=== PATIENT | male | born 1955 | race Caucasian/White ===

== ENCOUNTER 2024-03-09 17:00 | Inpatient (IN) | payer MEDICAID, OTHER ==
[~2024-03-09] VITALS: Ht 175.3 cm; Wt 67.1 kg
[2024-03-09 17:29] LABS: BASOPHILS % 0.5 % (0.0-2.0); EOSINOPHILS % 4.6 % (0.0-5.0); HEMATOCRIT. 38.6 % (42.0-52.0); HEMOGLOBIN. 12.9 g/dL (14.0-18.0); LYMPHOCYTES % 7.9 % (20.0-50.0); MEAN CORPUSCULAR HEMOGLOBIN 30.1 pg (28.0-32.0); MEAN CORPUSCULAR HGB CONC 33.4 g/dL (31.0-37.0); MEAN PLATELET VOLUME 8.8 fl (7.4-10.4); MONOCYTES % 5.4 % (2.0-8.0); NEUTROPHILS % 81.6 % (40.0-76.0); PLATELET 347 x1000/uL (130-400); RED BLOOD CELL COUNT 4.29 mill/uL (4.7-6.1); RED CELL DISTRIBUTION WIDTH 15.7 % (11.6-14.6)
[2024-03-09 17:31] LABS: CHLORIDE 104 mEq/L (98-107); SODIUM 138 mEq/L (136-145)
[2024-03-09 17:32] LABS: CARBON DIOXIDE 23 mEq/L (21-32)
[2024-03-09] MEDS: SODIUM CHLORIDE 0.9% (SEPSIS BOLUS) IV ONE (17:34)
[2024-03-09 17:37] LABS: CREATININE 0.9 mg/dL (0.6-1.3); GLUCOSE 333 mg/dL (70-105); UREA NITROGEN BLOOD 16 mg/dL (9-23)
[2024-03-09 17:39] LABS: ALANINE AMINOTRANSFERASE 8 IU/L (10-49); ALBUMIN 4.4 g/dL (3.2-4.8); ASPARTATE AMINOTRANSFERASE 15 IU/L (<34); BILIRUBIN DIRECT 0.2 mg/dL (<=3.0); BILIRUBIN TOTAL 0.5 mg/dL (0.1-1.0); PROTEIN TOTAL 7.5 g/dL (6.0-8.3)
[2024-03-09 17:43] LABS: INR 1.1; PROTHROMBIN TIME 12.5 sec (9.6-11.0)
[2024-03-09 17:45] LABS: TROPONIN I HIGH SENSITIVITY 529 ng/L (3.0-53)
[2024-03-09] MEDS ORDERED: VANCOMYCIN 1G PREMIX 200 ML IV ONE (17:45)
[2024-03-09] MEDS: PIPERACILLIN/TAZO 3.375G/50ML 50 ML IV ONE (17:57)
[2024-03-09] MEDS: VANCOMYCIN 1GM PMX (XELLIA) 200 ML IV NR (18:22)
[2024-03-09] MEDS: NOREPINEPHRINE 8MG/250ML PMX 250 ML IV ONE (18:31)
[2024-03-09] MEDS: SUCCINYLCHOLINE CHLORIDE 200MG/10ML IV ONE (18:40)
[2024-03-09] MEDS: ETOMIDATE 2MG/ML 10ML VIAL IV ONE (18:40)
[2024-03-09 19:20] LABS: BG BASE EXCESS -3.6 mmol/L (-2.0-3.0); BG CARBOXYHEMOGLOBIN 1.1 % (0.5-1.5); BG DEOXYHEMOGLOBIN 3.6 % (0.0-5.0); BG FRACTION INSPIRED OXYGEN 100; BG HCO3 ACT 21.3 mmol/L (21.0-28.0); BG METHEMOGLOBIN 0.2 % (0.5-1.5); BG OXYGEN SATURATION 96.4 % (94.0-98.0); BG OXYHEMOGLOBIN 95.1 % (94.0-98.0); BG PH 7.366 (7.350-7.450); BG SAMPLE SITE RIGHT BRACHIAL; BG TOTAL HEMOGLOBIN 13.8 g/dL (13.5-17.5); BG VENT MODE MASK - NRB
[2024-03-09 19:46] LABS: CLARITY URINE CLOUDY (CLEAR); COLOR URINE YELLOW (YELLOW); GLUCOSE URINE 2+ (NEGATIVE); KETONES URINE TRACE (NEGATIVE); LEUKOCYTE ESTERASE URINE 1+ (NEGATIVE); NITRITE URINE NEGATIVE (NEGATIVE); OCCULT BLOOD URINE TRACE (NEGATIVE); PH URINE 5.5 (4.5-8.0); PROTEIN URINE 1+ (NEGATIVE); SPECIFIC GRAVITY URINE 1.014 (1.005-1.030); UROBILINOGEN URINE 0.2 E.U./dL (0.2-1.0)
[2024-03-09 20:01] LABS: RBC URINE 0-2 /hpf (0-2)
[2024-03-09 20:02] LABS: BACTERIA URINE 2+; SQUAMOUS EPITHELIAL CELL URINE FEW /lpf (RARE/1+)
[2024-03-09 21:02] LABS: TROPONIN I HIGH SENSITIVITY 4751 ng/L (3.0-53)
[2024-03-09] MEDS: ACETAMINOPHEN 325MG TABLET PO ONE (21:16)
[2024-03-09] MEDS ORDERED: MAGNESIUM/ALUMINUM HYDROXIDE/SIMETHICONE 30ML UDC PO PRN (21:30)
[2024-03-09] MEDS ORDERED: VANCOMYCIN 1G PREMIX 200 ML IV SCH (21:30)
[2024-03-09] MEDS ORDERED: CLONIDINE 0.1MG TABLET PO PRN (21:30)
[2024-03-09] MEDS: ONDANSETRON HCL 4MG/2ML INJ IV PRN (21:55)
[2024-03-09] MEDS ORDERED: PIPERACILLIN/TAZO 3.375G/50ML 50 ML IV SCH (22:00)
[2024-03-09] MEDS: IPRATROPIUM/ALBUTEROL 0.5-3(2.5)MG/3ML NEB HHN PRN (22:10)
[2024-03-09 22:11] VITALS: PULSE 88; RESP 22; O2SAT 93
[2024-03-09] MEDS: DEXT 5%/0.45% NACL 1000ML 1,000 ML IV SCH (23:16)
[2024-03-09 23:20] VITALS: PULSE 80; RESP 39; O2SAT 91
[2024-03-09] MEDS ORDERED: MIDAZOLAM 100MG/100ML PMX 100 ML IV PRN (23:45)
[2024-03-10] VITALS (71 sets, daily range): BP systolic 54–144; BP diastolic 40–86; PULSE 91–132; RESP 12–42; TEMP 36.6696–39.4476; O2SAT 94–100
[2024-03-10] MEDS: MIDAZOLAM 100MG/100ML PMX 100 ML IV PRN ×2 (00:07→13:18)
[2024-03-10 00:20] LABS: BG BASE EXCESS -5.7 mmol/L (-2.0-3.0); BG CARBOXYHEMOGLOBIN 0.7 % (0.5-1.5); BG DEOXYHEMOGLOBIN 1.6 % (0.0-5.0); BG FRACTION INSPIRED OXYGEN 100; BG HCO3 ACT 18.2 mmol/L (21.0-28.0); BG METHEMOGLOBIN 0.2 % (0.5-1.5); BG OXYGEN SATURATION 98.4 % (94.0-98.0); BG OXYHEMOGLOBIN 97.5 % (94.0-98.0); BG PCO2 31.2 mmHg (35.0-48.0); BG PH 7.383 (7.350-7.450); BG PO2 113.8 mmHg (83.0-108.0); BG SAMPLE SITE RIGHT BRACHIAL; BG TOTAL HEMOGLOBIN 14.4 g/dL (13.5-17.5); BG VENT MODE VENT - AC
[2024-03-10] MEDS: VANCOMYCIN 1GM PMX (XELLIA) 200 ML IV SCH (06:23)
[2024-03-10 06:29] LABS: BASOPHILS % 0.6 % (0.0-2.0); HEMATOCRIT. 40.9 % (42.0-52.0); LYMPHOCYTES % 12.7 % (20.0-50.0); MEAN CORPUSCULAR HEMOGLOBIN 28.8 pg (28.0-32.0); MEAN CORPUSCULAR HGB CONC 31.9 g/dL (31.0-37.0); MEAN CORPUSCULAR VOLUME 90.4 fL (80.0-94.0); MEAN PLATELET VOLUME 9.1 fl (7.4-10.4); MONOCYTES % 7.3 % (2.0-8.0); NEUTROPHILS % 79.4 % (40.0-76.0); PLATELET 274 x1000/uL (130-400); RED BLOOD CELL COUNT 4.53 mill/uL (4.7-6.1); RED CELL DISTRIBUTION WIDTH 15.6 % (11.6-14.6); WHITE BLOOD COUNT 13.2 x1000/uL (4.5-11.0)
[2024-03-10 06:40] LABS: CALCIUM 9.3 mg/dL (8.7-10.4); CARBON DIOXIDE 23 mEq/L (21-32); CHLORIDE 107 mEq/L (98-107); POTASSIUM 2.9 mEq/L (3.5-5.1); SODIUM 140 mEq/L (136-145)
[2024-03-10 06:45] LABS: CREATININE 1.2 mg/dL (0.6-1.3); GLUCOSE 390 mg/dL (70-105)
[2024-03-10 06:46] LABS: LDL CHOLESTEROL 34 mg/dL (5-100); TRIGLYCERIDE 141 mg/dL (0-150); UREA NITROGEN BLOOD 19 mg/dL (9-23)
[2024-03-10 06:47] LABS: ALANINE AMINOTRANSFERASE 13 IU/L (10-49); ASPARTATE AMINOTRANSFERASE 53 IU/L (<34); BILIRUBIN DIRECT 0.3 mg/dL (<=3.0); CHOLESTEROL 92 mg/dL (<200); HDL CHOLESTEROL 32 mg/dL (>55)
[2024-03-10 06:48] LABS: BILIRUBIN TOTAL 0.7 mg/dL (0.1-1.0); PHOSPHORUS 1.6 mg/dL (2.5-4.9); PROTEIN TOTAL 7.1 g/dL (6.0-8.3)
[2024-03-10 06:50] LABS: T4 FREE 1.21 ng/dL (0.89-1.76); THYROID STIMULATING HORMONE 2.08 uIU/mL (0.55-4.78)
[2024-03-10] MEDS ORDERED: DEXTROSE 50% WATER 50ML SYRINGE IV PRN (09:15)
[2024-03-10] MEDS: PIPERACILLIN/TAZO 3.375G/50ML 50 ML IV SCH (09:47)
[2024-03-10 09:48] LABS: BG CARBOXYHEMOGLOBIN 0.8 % (0.5-1.5); BG DEOXYHEMOGLOBIN 0.5 % (0.0-5.0); BG FRACTION INSPIRED OXYGEN 80; BG HCO3 ACT 20.3 mmol/L (21.0-28.0); BG METHEMOGLOBIN 0.2 % (0.5-1.5); BG OXYGEN SATURATION 99.5 % (94.0-98.0); BG OXYHEMOGLOBIN 98.5 % (94.0-98.0); BG PCO2 38.8 mmHg (35.0-48.0); BG PH 7.337 (7.350-7.450); BG PO2 182.9 mmHg (83.0-108.0); BG SAMPLE SITE RIGHT RADIAL; BG TOTAL HEMOGLOBIN 13.5 g/dL (13.5-17.5); BG VENT MODE VENT - AC
[2024-03-10] MEDS: PANTOPRAZOLE SODIUM 40 MG/VIAL IV SCH (09:48)
[2024-03-10] MEDS: ENOXAPARIN 40MG/0.4ML SYR SUBCUT SCH (09:49)
[2024-03-10 09:53] LABS: CREATINE KINASE 479 IU/L (46-171)
[2024-03-10 09:56] LABS: VITAMIN B12 SERUM 365 pg/mL (211-911)
[2024-03-10 09:57] LABS: FOLIC ACID (FOLATE) SERUM 13.34 ng/mL (>5.38)
[2024-03-10 11:09] LABS: AMMONIA < 17 uMol/L (<32)
[2024-03-10] MEDS: MAGNESIUM 2 G PREMIX 50 ML IV SCH (11:31)
[2024-03-10] MEDS ORDERED: NOREPINEPHRINE 8MG/250ML PMX 250 ML IV PRN (12:00)
[2024-03-10] MEDS: BLOOD SUGAR DIAGNOSTIC STRIP TEST SCH (12:10)
[2024-03-10] MEDS ORDERED: MIDAZOLAM HCL 100 MG in SODIUM CHLORIDE 0.9% 80 ML IV PRN (12:15)
[2024-03-10] MEDS: SODIUM CHLORIDE 0.9% 1,000 ML IV SCH (12:37)
[2024-03-10] MEDS: LACTATED RINGERS 1,000 ML IV ONE (12:37)
[2024-03-10] MEDS: NOREPINEPHRINE 8MG/250ML PMX 250 ML IV PRN (12:38)
[2024-03-10] MEDS: INSULIN LISPRO 100 UNITS/ML SUBCUT SCH (12:39)
[2024-03-10] MEDS ORDERED: LACTATED RINGERS 1,000 ML IV SCH (13:15)
[2024-03-10] MEDS: POTASSIUM PHOSPHATE 30 MMOL in SODIUM CHLORIDE 0.9% 490 ML IV SCH (14:10)
[2024-03-10] MEDS: MAGNESIUM 4 G PREMIX 100 ML IV SCH (14:10)
[2024-03-10] MEDS: IPRATROPIUM/ALBUTEROL 0.5-3(2.5)MG/3ML NEB HHN SCH (14:14)
[2024-03-10 14:25] LABS: *AMPHETAMINES SCREEN URINE NEGATIVE (NEGATIVE); *BENZODIAZEPINES SCREEN URINE PRESUMPTIVE POSITIVE (NEGATIVE)
[2024-03-10 14:26] LABS: *BARBITURATES SCREEN URINE NEGATIVE (NEGATIVE); *COCAINE SCREEN URINE NEGATIVE (NEGATIVE); CANNABINOID URINE SCREEN NEGATIVE (NEGATIVE); ECSTASY MDMA SCREEN URINE NEGATIVE (NEGATIVE); METHADONE URINE SCREEN NEGATIVE (NEGATIVE); OPIATES URINE SCREEN NEGATIVE (NEGATIVE); PHENCYCLIDINE URINE SCREEN NEGATIVE (NEGATIVE)
[2024-03-10 15:16] LABS: PHOSPHORUS 2.5 mg/dL (2.5-4.9)
[2024-03-10] MEDS: VANCOMYCIN 750MG PMX (XELLIA) 150 ML IV SCH (17:00)
[2024-03-10] MEDS: ACETAMINOPHEN 325MG TABLET PO PRN (18:50)
[2024-03-10] MEDS: NOREPINEPHRINE 32 MG in SODIUM CHLORIDE 0.9% 218 ML IV PRN (22:56)
[2024-03-11] VITALS (115 sets, daily range): BP systolic 47–172; BP diastolic 32–98; PULSE 87–127; RESP 9–44; TEMP 36.83628–39.1698; O2SAT 90–100
[2024-03-11] MEDS: BLOOD SUGAR DIAGNOSTIC STRIP TEST SCH (05:26)
[2024-03-11] MEDS: INSULIN LISPRO 100 UNITS/ML SUBCUT SCH (05:28)
[2024-03-11 06:24] LABS: BASOPHILS % 0.6 % (0.0-2.0); EOSINOPHILS % 0.2 % (0.0-5.0); HEMATOCRIT. 39.6 % (42.0-52.0); HEMOGLOBIN. 12.6 g/dL (14.0-18.0); MEAN CORPUSCULAR HEMOGLOBIN 29.1 pg (28.0-32.0); MEAN CORPUSCULAR HGB CONC 31.9 g/dL (31.0-37.0); MEAN PLATELET VOLUME 9.5 fl (7.4-10.4); MONOCYTES % 6.7 % (2.0-8.0); NEUTROPHILS % 82.5 % (40.0-76.0); PLATELET 229 x1000/uL (130-400); RED BLOOD CELL COUNT 4.35 mill/uL (4.7-6.1); RED CELL DISTRIBUTION WIDTH 16.1 % (11.6-14.6); WHITE BLOOD COUNT 18.3 x1000/uL (4.5-11.0)
[2024-03-11] MEDS ORDERED: DEXT 5%/0.9% NACL 1,000 ML IV SCH (09:30)
[2024-03-11 10:04] LABS: CHLORIDE 110 mEq/L (98-107); POTASSIUM 3.5 mEq/L (3.5-5.1); SODIUM 143 mEq/L (136-145)
[2024-03-11 10:05] LABS: CALCIUM 8.9 mg/dL (8.7-10.4); CARBON DIOXIDE 21 mEq/L (21-32)
[2024-03-11 10:10] LABS: CREATININE 0.8 mg/dL (0.6-1.3); GLUCOSE 277 mg/dL (70-105); UREA NITROGEN BLOOD 12 mg/dL (9-23)
[2024-03-11 10:12] LABS: ALANINE AMINOTRANSFERASE 18 IU/L (10-49); ALBUMIN 3.6 g/dL (3.2-4.8); ASPARTATE AMINOTRANSFERASE 47 IU/L (<34); BILIRUBIN DIRECT 0.3 mg/dL (<=3.0); PHOSPHORUS 2.7 mg/dL (2.5-4.9)
[2024-03-11 10:13] LABS: BILIRUBIN TOTAL 0.7 mg/dL (0.1-1.0); PROTEIN TOTAL 6.8 g/dL (6.0-8.3)
[2024-03-11] MEDS: MEROPENEM 1G/100ML 100 ML IV SCH (10:42)
[2024-03-11 11:19] LABS: TROPONIN I HIGH SENSITIVITY 6438 ng/L (3.0-53)
[2024-03-11 13:06] LABS: BG BASE EXCESS -2.4 mmol/L (-2.0-3.0); BG CARBOXYHEMOGLOBIN 0.4 % (0.5-1.5); BG DEOXYHEMOGLOBIN 2.1 % (0.0-5.0); BG FRACTION INSPIRED OXYGEN 35; BG HCO3 ACT 21.5 mmol/L (21.0-28.0); BG METHEMOGLOBIN 0.3 % (0.5-1.5); BG OXYGEN SATURATION 97.9 % (94.0-98.0); BG OXYHEMOGLOBIN 97.2 % (94.0-98.0); BG PCO2 34.1 mmHg (35.0-48.0); BG PH 7.417 (7.350-7.450); BG PO2 95.8 mmHg (83.0-108.0); BG SAMPLE SITE RIGHT RADIAL; BG TOTAL HEMOGLOBIN 12.8 g/dL (13.5-17.5); BG VENT MODE VENT - AC
[2024-03-11] MEDS: SODIUM CHLORIDE 0.9% 1,000 ML IV SCH (17:21)
[2024-03-12] VITALS (109 sets, daily range): BP systolic 70–157; BP diastolic 49–140; PULSE 81–132; RESP 0–39; TEMP 37.55856–38.50308; O2SAT 94–100
[2024-03-12] MEDS: FENTANYL 2500MCG/250ML PMX 250 ML IV PRN (06:07)
[2024-03-12 06:15] LABS: CARBON DIOXIDE 27 mEq/L (21-32); CHLORIDE 110 mEq/L (98-107); POTASSIUM 3.7 mEq/L (3.5-5.1); SODIUM 144 mEq/L (136-145)
[2024-03-12 06:16] LABS: CALCIUM 9.1 mg/dL (8.7-10.4)
[2024-03-12 06:21] LABS: CREATININE 0.7 mg/dL (0.6-1.3); GLUCOSE 282 mg/dL (70-105); UREA NITROGEN BLOOD 13 mg/dL (9-23)
[2024-03-12 06:45] LABS: BASOPHILS % 1.1 % (0.0-2.0); EOSINOPHILS % 2.2 % (0.0-5.0); HEMOGLOBIN. 12.8 g/dL (14.0-18.0); LYMPHOCYTES % 20.7 % (20.0-50.0); MEAN CORPUSCULAR HEMOGLOBIN 29.2 pg (28.0-32.0); MEAN CORPUSCULAR VOLUME 91.4 fL (80.0-94.0); MEAN PLATELET VOLUME 9.5 fl (7.4-10.4); MONOCYTES % 2.5 % (2.0-8.0); NEUTROPHILS % 73.5 % (40.0-76.0); PLATELET 199 x1000/uL (130-400); RED BLOOD CELL COUNT 4.38 mill/uL (4.7-6.1); RED CELL DISTRIBUTION WIDTH 16.2 % (11.6-14.6); WHITE BLOOD COUNT 8.3 x1000/uL (4.5-11.0)
[2024-03-12 10:20] LABS: BG BASE EXCESS 1.6 mmol/L (-2.0-3.0); BG CARBOXYHEMOGLOBIN 0.4 % (0.5-1.5); BG DEOXYHEMOGLOBIN 2.6 % (0.0-5.0); BG FRACTION INSPIRED OXYGEN 35; BG HCO3 ACT 26.3 mmol/L (21.0-28.0); BG METHEMOGLOBIN 0.3 % (0.5-1.5); BG OXYGEN SATURATION 97.4 % (94.0-98.0); BG OXYHEMOGLOBIN 96.7 % (94.0-98.0); BG PCO2 41.9 mmHg (35.0-48.0); BG PH 7.416 (7.350-7.450); BG PO2 89.3 mmHg (83.0-108.0); BG SAMPLE SITE RIGHT RADIAL; BG TOTAL HEMOGLOBIN 12.5 g/dL (13.5-17.5); BG VENT MODE VENT - AC
[2024-03-12] MEDS: QUETIAPINE FUMARATE 25MG TABLET PO SCH (12:19)
[2024-03-13] VITALS (100 sets, daily range): BP systolic 65–156; BP diastolic 47–92; PULSE 81–113; RESP 11–42; TEMP 37.05852–38.3364; O2SAT 36–100
[2024-03-13 05:36] LABS: DIFFERENTIAL COMMENT 0; HEMATOCRIT. 33.4 % (42.0-52.0); HEMOGLOBIN. 11.4 g/dL (14.0-18.0); LYMPHOCYTES % 13.3 % (20.0-50.0); MEAN CORPUSCULAR HEMOGLOBIN 30.8 pg (28.0-32.0); MEAN CORPUSCULAR HGB CONC 34.1 g/dL (31.0-37.0); MEAN CORPUSCULAR VOLUME 90.1 fL (80.0-94.0); MEAN PLATELET VOLUME 9.7 fl (7.4-10.4); MONOCYTES % 6.5 % (2.0-8.0); NEUTROPHILS % 74.2 % (40.0-76.0); PLATELET 180 x1000/uL (130-400); RED BLOOD CELL COUNT 3.71 mill/uL (4.7-6.1); RED CELL DISTRIBUTION WIDTH 16.3 % (11.6-14.6); WHITE BLOOD COUNT 9.2 x1000/uL (4.5-11.0)
[2024-03-13 05:37] LABS: CARBON DIOXIDE 31 mEq/L (21-32); CHLORIDE 110 mEq/L (98-107); POTASSIUM 3.1 mEq/L (3.5-5.1); SODIUM 145 mEq/L (136-145)
[2024-03-13 05:39] LABS: CALCIUM 8.3 mg/dL (8.7-10.4)
[2024-03-13 05:43] LABS: CREATININE 0.6 mg/dL (0.6-1.3); GLUCOSE 230 mg/dL (70-105)
[2024-03-13 05:44] LABS: UREA NITROGEN BLOOD 12 mg/dL (9-23)
[2024-03-13] MEDS: KCL 20MEQ/100ML X 2 FOR TOTAL KCL 40MEQ/200ML IV SCH (12:08)
[2024-03-13] MEDS ORDERED: POTASSIUM CHLORIDE 40 MEQ in DEXT 5% WATER 230 ML IV NR (12:30)
[2024-03-13] MEDS: MIDAZOLAM HCL 2 MG/2 ML VIAL IV NR (14:56)
[2024-03-13 15:32] LABS: BG DEOXYHEMOGLOBIN 10.4 % (0.0-5.0); BG METHEMOGLOBIN 0.1 % (0.5-1.5); BG OXYGEN SATURATION 89.5 % (94.0-98.0); BG OXYHEMOGLOBIN 88.5 % (94.0-98.0); BG PCO2 45.7 mmHg (35.0-48.0); BG PH 7.435 (7.350-7.450); BG PO2 54.7 mmHg (83.0-108.0); BG SAMPLE SITE RIGHT RADIAL; BG VENT MODE VENT - SIMV
[2024-03-13] MEDS: DOCUSATE SODIUM SUGAR FREE 100MG/10ML UDC NG SCH (17:25)
[2024-03-14] VITALS (116 sets, daily range): BP systolic 54–142; BP diastolic 44–102; PULSE 85–122; RESP 14–40; TEMP 36.83628–37.66968; O2SAT 96–100
[2024-03-14] MEDS: ACETYLCYSTEINE 200MG/ML 20% VIAL 4ML INH SCH (01:37)
[2024-03-14] MEDS: FENTANYL CITRATE 2,500 MCG in SODIUM CHLORIDE 0.9% 200 ML IV PRN (07:04)
[2024-03-14 07:05] LABS: HEMATOCRIT 34.9 % (42.0-52.0); HEMOGLOBIN 11.4 g/dL (14.0-18.0); MEAN CORPUSCULAR HEMOGLOBIN 29.5 pg (28.0-32.0); MEAN CORPUSCULAR HGB CONC 32.6 g/dL (31.0-37.0); MEAN CORPUSCULAR VOLUME 90.4 fL (80.0-94.0); PLATELET 175 x1000/uL (130-400); RED BLOOD CELL COUNT 3.86 mill/uL (4.7-6.1); RED CELL DISTRIBUTION WIDTH 15.9 % (11.6-14.6); WHITE BLOOD COUNT 8.1 x1000/uL (4.5-11.0)
[2024-03-14 07:17] LABS: CARBON DIOXIDE 30 mEq/L (21-32); CHLORIDE 110 mEq/L (98-107); POTASSIUM 3.5 mEq/L (3.5-5.1); SODIUM 147 mEq/L (136-145)
[2024-03-14 07:18] LABS: CALCIUM 8.8 mg/dL (8.7-10.4)
[2024-03-14 07:23] LABS: CREATININE 0.5 mg/dL (0.6-1.3); GLUCOSE 255 mg/dL (70-105); UREA NITROGEN BLOOD 14 mg/dL (9-23)
[2024-03-14 07:25] LABS: PHOSPHORUS 2.2 mg/dL (2.5-4.9)
[2024-03-14] MEDS: MAGNESIUM 2 G PREMIX 50 ML IV NR (09:10)
[2024-03-14] MEDS: SODIUM CHLORIDE 0.45% 1,000 ML IV SCH (09:10)
[2024-03-14] MEDS: POTASSIUM PHOSPHATE 30 MMOL in DEXT 5% WATER 490 ML IV SCH (11:23)
[2024-03-14 17:03] LABS: BG BASE EXCESS 6.4 mmol/L (-2.0-3.0); BG CARBOXYHEMOGLOBIN 0.7 % (0.5-1.5); BG FRACTION INSPIRED OXYGEN 40; BG HCO3 ACT 31.5 mmol/L (21.0-28.0); BG METHEMOGLOBIN 0.1 % (0.5-1.5); BG OXYHEMOGLOBIN 95.2 % (94.0-98.0); BG PCO2 47.5 mmHg (35.0-48.0); BG PO2 79.2 mmHg (83.0-108.0); BG SAMPLE SITE RIGHT RADIAL; BG TOTAL HEMOGLOBIN 12.2 g/dL (13.5-17.5); BG TOTAL RESPIRATORY RATE 37 b/min; BG VENT MODE VENT - SIMV
[2024-03-15] VITALS (105 sets, daily range): BP systolic 63–165; BP diastolic 52–97; PULSE 88–121; RESP 20–37; TEMP 36.78072–39.39204; O2SAT 93–100
[2024-03-15] MEDS: MENTHOL/LANOLIN/CALAMINE/ZN OX OINT 71GM TOP SCH (11:47)
[2024-03-15 12:55] LABS: BASOPHILS % 0.5 % (0.0-2.0); EOSINOPHILS % 1.8 % (0.0-5.0); HEMATOCRIT. 37.7 % (42.0-52.0); HEMOGLOBIN. 12.2 g/dL (14.0-18.0); LYMPHOCYTES % 19.1 % (20.0-50.0); MEAN CORPUSCULAR HEMOGLOBIN 29.3 pg (28.0-32.0); MEAN CORPUSCULAR HGB CONC 32.4 g/dL (31.0-37.0); MEAN CORPUSCULAR VOLUME 90.5 fL (80.0-94.0); MEAN PLATELET VOLUME 9.9 fl (7.4-10.4); MONOCYTES % 9.6 % (2.0-8.0); PLATELET 251 x1000/uL (130-400); RED BLOOD CELL COUNT 4.17 mill/uL (4.7-6.1)
[2024-03-15 12:59] LABS: CARBON DIOXIDE 27 mEq/L (21-32); CHLORIDE 102 mEq/L (98-107); POTASSIUM 3.4 mEq/L (3.5-5.1); SODIUM 139 mEq/L (136-145)
[2024-03-15 13:00] LABS: CALCIUM 8.9 mg/dL (8.7-10.4)
[2024-03-15 13:05] LABS: CREATININE 0.6 mg/dL (0.6-1.3); GLUCOSE 324 mg/dL (70-105); UREA NITROGEN BLOOD 13 mg/dL (9-23)
[2024-03-16] VITALS (101 sets, daily range): BP systolic 63–163; BP diastolic 50–85; PULSE 87–115; RESP 13–38; TEMP 36.78072–38.11416; O2SAT 93–100
[2024-03-16] MEDS: MIDAZOLAM 100MG/100ML PMX 100 ML IV PRN (05:36)
[2024-03-16 06:40] LABS: ALBUMIN 3.6 g/dL (3.2-4.8)
[2024-03-16 06:42] LABS: PREALBUMIN 7.3 mg/dl (10.0-40.0)
[2024-03-16 08:59] LABS: CHLORIDE 104 mEq/L (98-107); POTASSIUM 3.1 mEq/L (3.5-5.1); SODIUM 143 mEq/L (136-145)
[2024-03-16 09:00] LABS: CALCIUM 9.1 mg/dL (8.7-10.4); CARBON DIOXIDE 33 mEq/L (21-32)
[2024-03-16 09:05] LABS: CREATININE 0.6 mg/dL (0.6-1.3); GLUCOSE 245 mg/dL (70-105)
[2024-03-16 09:06] LABS: UREA NITROGEN BLOOD 15 mg/dL (9-23)
[2024-03-16 09:07] LABS: ALANINE AMINOTRANSFERASE 9 IU/L (10-49); ALBUMIN 3.5 g/dL (3.2-4.8); ASPARTATE AMINOTRANSFERASE 16 IU/L (<34)
[2024-03-16 09:07] LABS: BG BASE EXCESS 8.8 mmol/L (-2.0-3.0); BG CARBOXYHEMOGLOBIN 1.1 % (0.5-1.5); BG DEOXYHEMOGLOBIN 5.9 % (0.0-5.0); BG FRACTION INSPIRED OXYGEN 35; BG METHEMOGLOBIN 0.1 % (0.5-1.5); BG OXYHEMOGLOBIN 92.9 % (94.0-98.0); BG PCO2 52.3 mmHg (35.0-48.0); BG PH 7.443 (7.350-7.450); BG PO2 68.7 mmHg (83.0-108.0); BG SAMPLE SITE RIGHT RADIAL; BG TOTAL HEMOGLOBIN 16.6 g/dL (13.5-17.5); BG VENT MODE VENT - AC
[2024-03-16 09:08] LABS: BILIRUBIN TOTAL 0.5 mg/dL (0.1-1.0); PHOSPHORUS 2.2 mg/dL (2.5-4.9); PROTEIN TOTAL 6.7 g/dL (6.0-8.3)
[2024-03-16] MEDS ORDERED: POTASSIUM CHLORIDE 40 MEQ in DEXT 5% WATER 230 ML IV ONE (09:15)
[2024-03-16 09:29] LABS: BASOPHILS % 0.7 % (0.0-2.0); EOSINOPHILS % 7.4 % (0.0-5.0); HEMATOCRIT. 37.4 % (42.0-52.0); HEMOGLOBIN. 12.1 g/dL (14.0-18.0); LYMPHOCYTES % 25.5 % (20.0-50.0); MEAN CORPUSCULAR HEMOGLOBIN 29.2 pg (28.0-32.0); MEAN CORPUSCULAR HGB CONC 32.3 g/dL (31.0-37.0); MEAN CORPUSCULAR VOLUME 90.5 fL (80.0-94.0); MEAN PLATELET VOLUME 10.1 fl (7.4-10.4); MONOCYTES % 11.1 % (2.0-8.0); NEUTROPHILS % 55.3 % (40.0-76.0); PLATELET 299 x1000/uL (130-400); RED BLOOD CELL COUNT 4.14 mill/uL (4.7-6.1); RED CELL DISTRIBUTION WIDTH 15.7 % (11.6-14.6); WHITE BLOOD COUNT 8.9 x1000/uL (4.5-11.0)
[2024-03-16] MEDS: KCL 20MEQ/100ML X 2 FOR TOTAL KCL 40MEQ/200ML IV SCH (11:13)
[2024-03-16 15:29] LABS: BG BASE EXCESS 8.8 mmol/L (-2.0-3.0); BG DEOXYHEMOGLOBIN 5.2 % (0.0-5.0); BG FRACTION INSPIRED OXYGEN 35; BG HCO3 ACT 33.4 mmol/L (21.0-28.0); BG METHEMOGLOBIN 0.3 % (0.5-1.5); BG OXYGEN SATURATION 94.7 % (94.0-98.0); BG OXYHEMOGLOBIN 93.5 % (94.0-98.0); BG PCO2 45.5 mmHg (35.0-48.0); BG PH 7.483 (7.350-7.450); BG PO2 70.5 mmHg (83.0-108.0); BG SAMPLE SITE RIGHT RADIAL; BG TOTAL HEMOGLOBIN 12.8 g/dL (13.5-17.5); BG VENT MODE VENT - AC
[2024-03-16] MEDS: POTASSIUM PHOSPHATE 15 MMOL in DEXT 5% WATER 245 ML IV NR (15:54)
[2024-03-17] VITALS (89 sets, daily range): BP systolic 62–214; BP diastolic 43–178; PULSE 91–122; RESP 16–35; TEMP 36.72516–37.16964; O2SAT 96–100
[2024-03-17 06:11] LABS: BASOPHILS % 0.7 % (0.0-2.0); EOSINOPHILS % 9.5 % (0.0-5.0); HEMATOCRIT. 36.7 % (42.0-52.0); HEMOGLOBIN. 12.2 g/dL (14.0-18.0); LYMPHOCYTES % 23.1 % (20.0-50.0); MEAN CORPUSCULAR HEMOGLOBIN 30.1 pg (28.0-32.0); MEAN CORPUSCULAR HGB CONC 33.3 g/dL (31.0-37.0); MEAN CORPUSCULAR VOLUME 90.4 fL (80.0-94.0); MEAN PLATELET VOLUME 9.8 fl (7.4-10.4); MONOCYTES % 9.2 % (2.0-8.0); NEUTROPHILS % 57.5 % (40.0-76.0); PLATELET 376 x1000/uL (130-400); RED BLOOD CELL COUNT 4.06 mill/uL (4.7-6.1); RED CELL DISTRIBUTION WIDTH 15.3 % (11.6-14.6); WHITE BLOOD COUNT 9.5 x1000/uL (4.5-11.0)
[2024-03-17 06:13] LABS: CARBON DIOXIDE 32 mEq/L (21-32); CHLORIDE 101 mEq/L (98-107); POTASSIUM 3.5 mEq/L (3.5-5.1); SODIUM 140 mEq/L (136-145)
[2024-03-17 06:14] LABS: CALCIUM 9.1 mg/dL (8.7-10.4)
[2024-03-17 06:19] LABS: CREATININE 0.5 mg/dL (0.6-1.3); GLUCOSE 277 mg/dL (70-105); UREA NITROGEN BLOOD 13 mg/dL (9-23)
[2024-03-17] MEDS: SODIUM CHLORIDE 0.9% 500 ML IV ONE (08:42)
[2024-03-17] MEDS ORDERED: POTASSIUM CHLORIDE 40 MEQ in DEXT 5% WATER 230 ML IV ONE (11:00)
[2024-03-17] MEDS: KCL 20MEQ/100ML X 2 FOR TOTAL KCL 40MEQ/200ML IV SCH (11:52)
[2024-03-17] MEDS: SODIUM CHLORIDE 0.9% 1,000 ML IV ONE (12:55)
[2024-03-17] MEDS: KETOROLAC 10MG TABLET PO SCH (14:23)
[2024-03-17 15:49] LABS: BG BASE EXCESS 8.3 mmol/L (-2.0-3.0); BG CARBOXYHEMOGLOBIN 0.1 % (0.5-1.5); BG DEOXYHEMOGLOBIN 2.7 % (0.0-5.0); BG FRACTION INSPIRED OXYGEN 40; BG HCO3 ACT 32.3 mmol/L (21.0-28.0); BG METHEMOGLOBIN 0.3 % (0.5-1.5); BG OXYGEN SATURATION 97.3 % (94.0-98.0); BG OXYHEMOGLOBIN 96.9 % (94.0-98.0); BG PCO2 42.4 mmHg (35.0-48.0); BG PO2 88.4 mmHg (83.0-108.0); BG SAMPLE SITE LEFT RADIAL; BG TOTAL HEMOGLOBIN 13.1 g/dL (13.5-17.5); BG VENT MODE VENT - SIMV
[2024-03-17] MEDS: LORAZEPAM 2MG/ML INJ IV PRN (20:24)
[2024-03-18] VITALS (106 sets, daily range): BP systolic 60–167; BP diastolic 43–89; PULSE 73–113; RESP 16–40; TEMP 36.83628–37.39188; O2SAT 94–100
[2024-03-18] MEDS: POLYETHYLENE GLYCOL 3350 (17GM) 1 DOSE PACK PO SCH (02:12)
[2024-03-18 05:51] LABS: BASOPHILS % 0.7 % (0.0-2.0); EOSINOPHILS % 2.9 % (0.0-5.0); HEMATOCRIT. 35.5 % (42.0-52.0); HEMOGLOBIN. 11.5 g/dL (14.0-18.0); LYMPHOCYTES % 8.7 % (20.0-50.0); MEAN CORPUSCULAR HEMOGLOBIN 29.1 pg (28.0-32.0); MEAN CORPUSCULAR HGB CONC 32.5 g/dL (31.0-37.0); MEAN CORPUSCULAR VOLUME 89.6 fL (80.0-94.0); MEAN PLATELET VOLUME 9.7 fl (7.4-10.4); MONOCYTES % 4.1 % (2.0-8.0); NEUTROPHILS % 83.6 % (40.0-76.0); PLATELET 424 x1000/uL (130-400); RED BLOOD CELL COUNT 3.96 mill/uL (4.7-6.1); RED CELL DISTRIBUTION WIDTH 15.6 % (11.6-14.6); WHITE BLOOD COUNT 13.3 x1000/uL (4.5-11.0)
[2024-03-18 06:01] LABS: CALCIUM 8.8 mg/dL (8.7-10.4); CHLORIDE 104 mEq/L (98-107); POTASSIUM 3.4 mEq/L (3.5-5.1); SODIUM 141 mEq/L (136-145)
[2024-03-18 06:02] LABS: CARBON DIOXIDE 28 mEq/L (21-32)
[2024-03-18 06:07] LABS: CREATININE 0.6 mg/dL (0.6-1.3); GLUCOSE 277 mg/dL (70-105); UREA NITROGEN BLOOD 13 mg/dL (9-23)
[2024-03-18] MEDS ORDERED: POTASSIUM CHLORIDE 40 MEQ in DEXT 5% WATER 230 ML IV ONE (08:45)
[2024-03-18 09:28] LABS: PHOSPHORUS 2.8 mg/dL (2.5-4.9)
[2024-03-18] MEDS: KCL 20MEQ/100ML X 2 FOR TOTAL KCL 40MEQ/200ML IV SCH (09:30)
[2024-03-18] MEDS: KETOROLAC 10MG TABLET PO PRN (10:56)
[2024-03-18] MEDS: SODIUM CHLORIDE 0.9% 1,000 ML IV ONE (14:26)
[2024-03-18] MEDS: DEXMEDETOMIDINE 400 MCG/100 ML 100 ML IV PRN (14:26)
[2024-03-18 17:22] LABS: BG CARBOXYHEMOGLOBIN 0.3 % (0.5-1.5); BG HCO3 ACT 30.5 mmol/L (21.0-28.0); BG METHEMOGLOBIN 0.3 % (0.5-1.5); BG OXYHEMOGLOBIN 97.4 % (94.0-98.0); BG PCO2 43.9 mmHg (35.0-48.0); BG PO2 100.5 mmHg (83.0-108.0); BG SAMPLE SITE RIGHT RADIAL; BG TOTAL HEMOGLOBIN 12.2 g/dL (13.5-17.5); BG VENT MODE VENT - SIMV
[2024-03-19] VITALS (103 sets, daily range): BP systolic 78–154; BP diastolic 45–78; PULSE 76–97; RESP 17–44; TEMP 36.78072–37.28076; O2SAT 95–100
[2024-03-19] MEDS: NOREPINEPHRINE 8MG/250ML PMX 250 ML IV PRN (02:27)
[2024-03-20] VITALS (112 sets, daily range): BP systolic 60–172; BP diastolic 40–92; PULSE 80–124; RESP 0–42; TEMP 36.78072–37.16964; O2SAT 95–100
[2024-03-20 06:18] LABS: BASOPHILS % 1.1 % (0.0-2.0); EOSINOPHILS % 2.3 % (0.0-5.0); HEMATOCRIT. 37.4 % (42.0-52.0); HEMOGLOBIN. 12.2 g/dL (14.0-18.0); LYMPHOCYTES % 15.2 % (20.0-50.0); MEAN CORPUSCULAR HEMOGLOBIN 29.4 pg (28.0-32.0); MEAN CORPUSCULAR HGB CONC 32.7 g/dL (31.0-37.0); MEAN CORPUSCULAR VOLUME 89.9 fL (80.0-94.0); MEAN PLATELET VOLUME 9.5 fl (7.4-10.4); MONOCYTES % 4.9 % (2.0-8.0); NEUTROPHILS % 76.5 % (40.0-76.0); PLATELET 563 x1000/uL (130-400); RED BLOOD CELL COUNT 4.16 mill/uL (4.7-6.1); WHITE BLOOD COUNT 13.5 x1000/uL (4.5-11.0)
[2024-03-20 06:32] LABS: CHLORIDE 104 mEq/L (98-107); POTASSIUM 3.8 mEq/L (3.5-5.1); SODIUM 141 mEq/L (136-145)
[2024-03-20 06:33] LABS: CALCIUM 9.6 mg/dL (8.7-10.4); CARBON DIOXIDE 29 mEq/L (21-32)
[2024-03-20 06:38] LABS: CREATININE 0.6 mg/dL (0.6-1.3); GLUCOSE 279 mg/dL (70-105); UREA NITROGEN BLOOD 16 mg/dL (9-23)
[2024-03-20] MEDS: SODIUM CHLORIDE 0.9% 1,000 ML IV SCH (11:40)
[2024-03-20] MEDS: LORAZEPAM 0.5MG TABLET PO PRN (12:37)
[2024-03-20] MEDS: NA PHOS,M-B/NA PHOS,DI-BA ENEMA 118ML PR NR (14:41)
[2024-03-20] MEDS ORDERED: LORAZEPAM 2MG/ML INJ IV PRN (16:15)
[2024-03-20] MEDS ORDERED: DEXTROSE 50% WATER 50ML SYRINGE IV PRN (17:00)
[2024-03-20] MEDS: INSULIN LISPRO 100 UNITS/ML SUBCUT SCH (17:53)
[2024-03-20] MEDS: BLOOD SUGAR DIAGNOSTIC STRIP TEST SCH (21:55)
[2024-03-20] MEDS: INSULIN GLARGINE 100 UNITS/ML SUBCUT SCH (21:55)
[2024-03-21] VITALS (93 sets, daily range): BP systolic 62–148; BP diastolic 47–112; PULSE 74–102; RESP 13–36; TEMP 36.44736–37.7808; O2SAT 95–99
[2024-03-21 05:13] LABS: BASOPHILS % 0.9 % (0.0-2.0); EOSINOPHILS % 4.1 % (0.0-5.0); HEMATOCRIT. 37.2 % (42.0-52.0); HEMOGLOBIN. 12.2 g/dL (14.0-18.0); LYMPHOCYTES % 18.2 % (20.0-50.0); MEAN CORPUSCULAR HEMOGLOBIN 29.6 pg (28.0-32.0); MEAN CORPUSCULAR HGB CONC 32.7 g/dL (31.0-37.0); MEAN CORPUSCULAR VOLUME 90.4 fL (80.0-94.0); MEAN PLATELET VOLUME 9.9 fl (7.4-10.4); MONOCYTES % 6.6 % (2.0-8.0); NEUTROPHILS % 70.2 % (40.0-76.0); PLATELET 561 x1000/uL (130-400); RED BLOOD CELL COUNT 4.11 mill/uL (4.7-6.1); RED CELL DISTRIBUTION WIDTH 15.7 % (11.6-14.6)
[2024-03-21 05:23] LABS: CARBON DIOXIDE 30 mEq/L (21-32); CHLORIDE 104 mEq/L (98-107); POTASSIUM 3.8 mEq/L (3.5-5.1); SODIUM 141 mEq/L (136-145)
[2024-03-21 05:24] LABS: CALCIUM 9.1 mg/dL (8.7-10.4)
[2024-03-21 05:29] LABS: CREATININE 0.7 mg/dL (0.6-1.3); GLUCOSE 327 mg/dL (70-105); UREA NITROGEN BLOOD 24 mg/dL (9-23)
[2024-03-21] MEDS: LIDOCAINE HCL 1% 10 MG/ML 10ML VIAL ONE (07:47)
[2024-03-21 11:30] LABS: BG CARBOXYHEMOGLOBIN 0.6 % (0.5-1.5); BG DEOXYHEMOGLOBIN 2.4 % (0.0-5.0); BG FRACTION INSPIRED OXYGEN 40; BG HCO3 ACT 29.8 mmol/L (21.0-28.0); BG METHEMOGLOBIN 0.3 % (0.5-1.5); BG OXYGEN SATURATION 97.6 % (94.0-98.0); BG OXYHEMOGLOBIN 96.7 % (94.0-98.0); BG PCO2 44.5 mmHg (35.0-48.0); BG PH 7.444 (7.350-7.450); BG PO2 96.5 mmHg (83.0-108.0); BG SAMPLE SITE RIGHT RADIAL; BG TOTAL HEMOGLOBIN 13.3 g/dL (13.5-17.5); BG VENT MODE VENT - CPAP
[2024-03-22] VITALS (72 sets, daily range): BP systolic 74–140; BP diastolic 52–81; PULSE 74–119; RESP 14–34; TEMP 36.05844–37.16964; O2SAT 93–99
[2024-03-22] MEDS: ACETYLCYSTEINE 200MG/ML 20% VIAL 4ML INH SCH (09:07)
[2024-03-22] MEDS: IPRATROPIUM/ALBUTEROL 0.5-3(2.5)MG/3ML NEB HHN SCH (09:08)
[2024-03-22 09:24] LABS: BG BASE EXCESS 6.3 mmol/L (-2.0-3.0); BG CARBOXYHEMOGLOBIN 0.8 % (0.5-1.5); BG DEOXYHEMOGLOBIN 3.6 % (0.0-5.0); BG FRACTION INSPIRED OXYGEN 40; BG METHEMOGLOBIN 0.3 % (0.5-1.5); BG OXYGEN SATURATION 96.4 % (94.0-98.0); BG OXYHEMOGLOBIN 95.3 % (94.0-98.0); BG PCO2 39.4 mmHg (35.0-48.0); BG PH 7.499 (7.350-7.450); BG PO2 79.1 mmHg (83.0-108.0); BG SAMPLE SITE RIGHT RADIAL; BG TOTAL HEMOGLOBIN 12.2 g/dL (13.5-17.5); BG VENT MODE VENT - SIMV
[2024-03-22 12:34] LABS: BG BASE EXCESS 5.8 mmol/L (-2.0-3.0); BG CARBOXYHEMOGLOBIN 0.5 % (0.5-1.5); BG DEOXYHEMOGLOBIN 3.9 % (0.0-5.0); BG FRACTION INSPIRED OXYGEN 40; BG HCO3 ACT 30.3 mmol/L (21.0-28.0); BG METHEMOGLOBIN 0.3 % (0.5-1.5); BG OXYGEN SATURATION 96.1 % (94.0-98.0); BG OXYHEMOGLOBIN 95.3 % (94.0-98.0); BG PCO2 43.6 mmHg (35.0-48.0); BG SAMPLE SITE RIGHT BRACHIAL; BG TOTAL HEMOGLOBIN 12.7 g/dL (13.5-17.5); BG VENT MODE VENT - CPAP
[2024-03-22] MEDS: FENTANYL CITRATE/PF 50MCG/ML 2ML VIAL IV NR ×2 (21:38→21:44)
[2024-03-22] MEDS: MIDAZOLAM HCL 2 MG/2 ML VIAL IV NR (21:40)
[2024-03-22] MEDS: INSULIN GLARGINE 100 UNITS/ML SUBCUT SCH (22:23)
[2024-03-23] VITALS (87 sets, daily range): BP systolic 80–143; BP diastolic 50–88; PULSE 92–125; RESP 21–40; TEMP 37.16964–38.892; O2SAT 95–100
[2024-03-23] MEDS: MORPHINE SULFATE 4 MG/ML INJ (FOR IV/IM USE) IV PRN (04:06)
[2024-03-23] MEDS: ACETAMINOPHEN 650MG/20.3ML UDC PO PRN (04:40)
[2024-03-23] MEDS ORDERED: ACETAMINOPHEN 325MG TABLET PO PRN (05:00)
[2024-03-23 09:44] LABS: HEMATOCRIT. 37.4 % (42.0-52.0); HEMOGLOBIN. 11.7 g/dL (14.0-18.0); MEAN CORPUSCULAR HGB CONC 31.3 g/dL (31.0-37.0); MEAN CORPUSCULAR VOLUME 89.4 fL (80.0-94.0); MEAN PLATELET VOLUME 10.1 fl (7.4-10.4); PLATELET 558 x1000/uL (130-400); RED BLOOD CELL COUNT 4.19 mill/uL (4.7-6.1); RED CELL DISTRIBUTION WIDTH 15.6 % (11.6-14.6); WHITE BLOOD COUNT 24.2 x1000/uL (4.5-11.0)
[2024-03-23 10:05] LABS: CHLORIDE 106 mEq/L (98-107); POTASSIUM 3.5 mEq/L (3.5-5.1); SODIUM 142 mEq/L (136-145)
[2024-03-23 10:06] LABS: CARBON DIOXIDE 30 mEq/L (21-32)
[2024-03-23 10:07] LABS: CALCIUM 8.9 mg/dL (8.7-10.4)
[2024-03-23 10:11] LABS: CREATININE 0.5 mg/dL (0.6-1.3); GLUCOSE 247 mg/dL (70-105)
[2024-03-23 10:12] LABS: UREA NITROGEN BLOOD 9 mg/dL (9-23)
[2024-03-23 10:20] LABS: DIFFERENTIAL COMMENT 1
[2024-03-23] MEDS ORDERED: NALOXONE HCL 0.4MG/ML VIAL IV PRN (13:45)
[2024-03-23 13:57] LABS: HEMATOCRIT 35.4 % (42.0-52.0); HEMOGLOBIN 11.4 g/dL (14.0-18.0); MEAN CORPUSCULAR HEMOGLOBIN 28.8 pg (28.0-32.0); MEAN CORPUSCULAR HGB CONC 32.2 g/dL (31.0-37.0); MEAN CORPUSCULAR VOLUME 89.4 fL (80.0-94.0); PLATELET 518 x1000/uL (130-400); RED BLOOD CELL COUNT 3.96 mill/uL (4.7-6.1); RED CELL DISTRIBUTION WIDTH 15.8 % (11.6-14.6); WHITE BLOOD COUNT 24.1 x1000/uL (4.5-11.0)
[2024-03-23] MEDS ORDERED: PHENYLEPHRINE 50MG/250ML PMX 250 ML IV PRN (15:00)
[2024-03-23] MEDS: PHENYLEPHRINE 100 MG in DEXT 5% WATER 250 ML IV PRN (17:10)
[2024-03-23] MEDS: AZITHROMYCIN 500MG/250ML 250 ML IV SCH (17:11)
[2024-03-23] MEDS: VANCOMYCIN 1.5GM PMX (XELLIA) 300 ML IV NR (17:11)
[2024-03-23 20:36] LABS: PLATELET ESTIMATE INCREASED
[2024-03-24] VITALS (83 sets, daily range): BP systolic 73–135; BP diastolic 47–94; PULSE 85–125; RESP 14–30; TEMP 36.61404–37.28076; O2SAT 91–99
[2024-03-24] MEDS: VANCOMYCIN 1GM PMX (XELLIA) 200 ML IV SCH ×2 (00:28→14:54)
[2024-03-24 05:29] LABS: BASOPHILS % 0.8 % (0.0-2.0); EOSINOPHILS % 1.8 % (0.0-5.0); HEMATOCRIT. 33.1 % (42.0-52.0); HEMOGLOBIN. 10.6 g/dL (14.0-18.0); MEAN CORPUSCULAR HEMOGLOBIN 28.6 pg (28.0-32.0); MEAN CORPUSCULAR VOLUME 89.4 fL (80.0-94.0); MEAN PLATELET VOLUME 9.6 fl (7.4-10.4); NEUTROPHILS % 81.4 % (40.0-76.0); PLATELET 490 x1000/uL (130-400); RED BLOOD CELL COUNT 3.71 mill/uL (4.7-6.1); RED CELL DISTRIBUTION WIDTH 15.4 % (11.6-14.6); WHITE BLOOD COUNT 17.2 x1000/uL (4.5-11.0)
[2024-03-24 05:38] LABS: CHLORIDE 106 mEq/L (98-107); POTASSIUM 3.2 mEq/L (3.5-5.1); SODIUM 143 mEq/L (136-145)
[2024-03-24 05:39] LABS: CARBON DIOXIDE 31 mEq/L (21-32)
[2024-03-24 05:40] LABS: CALCIUM 8.7 mg/dL (8.7-10.4)
[2024-03-24 05:44] LABS: CREATININE 0.4 mg/dL (0.6-1.3); GLUCOSE 194 mg/dL (70-105); UREA NITROGEN BLOOD 9 mg/dL (9-23)
[2024-03-24] MEDS ORDERED: POTASSIUM CHLORIDE 40 MEQ in DEXT 5% WATER 230 ML IV ONE (07:30)
[2024-03-24] MEDS: KCL 20MEQ/100ML X 2 FOR TOTAL KCL 40MEQ/200ML IV SCH (08:17)
[2024-03-24] MEDS: SODIUM CHLORIDE 0.9% 500 ML IV ONE (15:12)
[2024-03-24] MEDS: MAGNESIUM 2 G PREMIX 50 ML IV ONE (16:46)
[2024-03-24] MEDS: MIDODRINE HCL 5MG TABLET PO SCH (16:47)
[2024-03-24] MEDS: MEROPENEM 1G/100ML 100 ML IV SCH (17:58)
[2024-03-25] VITALS (57 sets, daily range): BP systolic 80–118; BP diastolic 50–85; PULSE 89–123; RESP 13–41; TEMP 36.55848–37.94748; O2SAT 93–100
[2024-03-25 06:29] LABS: CHLORIDE 107 mEq/L (98-107); POTASSIUM 3.5 mEq/L (3.5-5.1); SODIUM 140 mEq/L (136-145)
[2024-03-25 06:30] LABS: CARBON DIOXIDE 30 mEq/L (21-32)
[2024-03-25 06:31] LABS: CALCIUM 8.4 mg/dL (8.7-10.4)
[2024-03-25 06:31] LABS: BASOPHILS % 0.5 % (0.0-2.0); EOSINOPHILS % 1.5 % (0.0-5.0); HEMATOCRIT. 31.2 % (42.0-52.0); HEMOGLOBIN. 10.2 g/dL (14.0-18.0); LYMPHOCYTES % 12.4 % (20.0-50.0); MEAN CORPUSCULAR HEMOGLOBIN 29.4 pg (28.0-32.0); MEAN CORPUSCULAR HGB CONC 32.6 g/dL (31.0-37.0); MEAN CORPUSCULAR VOLUME 90.2 fL (80.0-94.0); MEAN PLATELET VOLUME 10.4 fl (7.4-10.4); MONOCYTES % 7.4 % (2.0-8.0); NEUTROPHILS % 78.2 % (40.0-76.0); PLATELET 433 x1000/uL (130-400); RED BLOOD CELL COUNT 3.45 mill/uL (4.7-6.1); RED CELL DISTRIBUTION WIDTH 15.8 % (11.6-14.6); WHITE BLOOD COUNT 12.9 x1000/uL (4.5-11.0)
[2024-03-25 06:35] LABS: CREATININE 0.5 mg/dL (0.6-1.3); GLUCOSE 249 mg/dL (70-105)
[2024-03-25 06:36] LABS: UREA NITROGEN BLOOD 14 mg/dL (9-23)
[2024-03-25] MEDS ORDERED: POTASSIUM CHLORIDE 40 MEQ in DEXT 5% WATER 230 ML IV ONE (07:30)
[2024-03-25] MEDS: SODIUM CHLORIDE 0.9% 1,000 ML IV ONE (08:27)
[2024-03-25] MEDS: KCL 20MEQ/100ML X 2 FOR TOTAL KCL 40MEQ/200ML IV SCH (08:27)
[2024-03-25 09:37] LABS: BG BASE EXCESS 9.8 mmol/L (-2.0-3.0); BG CARBOXYHEMOGLOBIN 0.2 % (0.5-1.5); BG DEOXYHEMOGLOBIN 3.1 % (0.0-5.0); BG FRACTION INSPIRED OXYGEN 40; BG HCO3 ACT 33.9 mmol/L (21.0-28.0); BG METHEMOGLOBIN 0.1 % (0.5-1.5); BG OXYGEN SATURATION 96.9 % (94.0-98.0); BG OXYHEMOGLOBIN 96.6 % (94.0-98.0); BG PCO2 43.9 mmHg (35.0-48.0); BG PH 7.506 (7.350-7.450); BG PO2 83.6 mmHg (83.0-108.0); BG SAMPLE SITE RIGHT RADIAL; BG TOTAL HEMOGLOBIN 10.5 g/dL (13.5-17.5); BG VENT MODE VENT - SIMV
[2024-03-25] MEDS: INSULIN GLARGINE 100 UNITS/ML SUBCUT SCH (10:40)
[2024-03-25] MEDS: QUETIAPINE FUMARATE 25MG TABLET PO SCH (21:20)
[2024-03-26] VITALS (21 sets, daily range): BP systolic 89–126; BP diastolic 54–73; PULSE 83–104; RESP 19–38; TEMP 36.114–37.44744; O2SAT 93–99
[2024-03-26 06:07] LABS: CALCIUM 8.7 mg/dL (8.7-10.4); CARBON DIOXIDE 30 mEq/L (21-32); CHLORIDE 103 mEq/L (98-107); POTASSIUM 3.4 mEq/L (3.5-5.1); SODIUM 138 mEq/L (136-145)
[2024-03-26 06:13] LABS: CREATININE 0.5 mg/dL (0.6-1.3); GLUCOSE 196 mg/dL (70-105); UREA NITROGEN BLOOD 9 mg/dL (9-23)
[2024-03-26 06:25] LABS: PHOSPHORUS 2.8 mg/dL (2.5-4.9)
[2024-03-26 06:57] LABS: BASOPHILS % 0.6 % (0.0-2.0); EOSINOPHILS % 1.4 % (0.0-5.0); HEMOGLOBIN. 10.1 g/dL (14.0-18.0); LYMPHOCYTES % 18.5 % (20.0-50.0); MEAN CORPUSCULAR HEMOGLOBIN 28.1 pg (28.0-32.0); MEAN CORPUSCULAR HGB CONC 31.5 g/dL (31.0-37.0); MEAN CORPUSCULAR VOLUME 89.3 fL (80.0-94.0); MEAN PLATELET VOLUME 10.3 fl (7.4-10.4); MONOCYTES % 7.6 % (2.0-8.0); NEUTROPHILS % 71.9 % (40.0-76.0); PLATELET 414 x1000/uL (130-400); RED BLOOD CELL COUNT 3.59 mill/uL (4.7-6.1); RED CELL DISTRIBUTION WIDTH 15.5 % (11.6-14.6); WHITE BLOOD COUNT 11.1 x1000/uL (4.5-11.0)
[2024-03-26] MEDS ORDERED: POTASSIUM CHLORIDE 40 MEQ in DEXT 5% WATER 230 ML IV ONE (07:30)
[2024-03-26] MEDS: KCL 20MEQ/100ML X 2 FOR TOTAL KCL 40MEQ/200ML IV SCH (09:54)
[2024-03-27] VITALS (9 sets, daily range): BP systolic 89–133; BP diastolic 60–74; PULSE 87–104; RESP 12–35; TEMP 37.00296–37.44744; O2SAT 95–98
== END 2024-03-27 15:15 | DRG 5 ==
LOC: ER 17:00 → MICUSO 19:03 → EDBD 19:03 → EDBEDREQ 19:07 → MICUNO 03-10 09:23 → 5EST 03-25 22:31
PROVIDERS: ADMIT Family Medicine Adult Medicine; ATTEND Family Medicine Adult Medicine
PROC: 5A1955Z Respiratory Ventilation, Greater than 96 Consecutive Hours (ICD-10-PCS; principal; 2024-03-09)
PROC: 0BH17EZ Insertion of Endotracheal Airway into Trachea, Via Natural or Artificial Opening (ICD-10-PCS; 2024-03-09)
PROC: B548ZZA Ultrasonography of Superior Vena Cava, Guidance (ICD-10-PCS; 2024-03-09)
PROC: 02HV33Z Insertion of Infusion Device into Superior Vena Cava, Percutaneous Approach (ICD-10-PCS; 2024-03-09)
PROC: 4A00X4Z Measurement of Central Nervous Electrical Activity, External Approach (ICD-10-PCS; 2024-03-11)
PROC: 02HV33Z Insertion of Infusion Device into Superior Vena Cava, Percutaneous Approach (ICD-10-PCS; 2024-03-14)
PROC: B548ZZA Ultrasonography of Superior Vena Cava, Guidance (ICD-10-PCS; 2024-03-14)
PROC: 0B110F4 Bypass Trachea to Cutaneous with Tracheostomy Device, Open Approach (ICD-10-PCS; 2024-03-24)
PROC: 0BJ08ZZ Inspection of Tracheobronchial Tree, Via Natural or Artificial Opening Endoscopic (ICD-10-PCS; 2024-03-24)
DX: A41.51 Sepsis due to Escherichia coli [E. coli] (principal); R65.21 Severe sepsis with septic shock; J69.0 Pneumonitis due to inhalation of food and vomit; G92.8 Other toxic encephalopathy; I21.4 Non-ST elevation (NSTEMI) myocardial infarction; J96.01 Acute respiratory failure with hypoxia; E11.65 Type 2 diabetes mellitus with hyperglycemia; D72.820 Lymphocytosis (symptomatic); J96.02 Acute respiratory failure with hypercapnia; E87.0 Hyperosmolality and hypernatremia; E87.3 Alkalosis; J84.9 Interstitial pulmonary disease, unspecified; E87.4 Mixed disorder of acid-base balance; D75.838 Other thrombocytosis; G31.9 Degenerative disease of nervous system, unspecified; I51.7 Cardiomegaly; E27.9 Disorder of adrenal gland, unspecified; L89.152 Pressure ulcer of sacral region, stage 2; Z20.822 Contact with and (suspected) exposure to COVID-19; E83.42 Hypomagnesemia; E87.6 Hypokalemia; E83.39 Other disorders of phosphorus metabolism; Z86.73 Personal history of transient ischemic attack (TIA), and cerebral infarction without residual deficits; Z78.1 Physical restraint status
CPT/HCPCS: 31500; 36415; 36573; 36600; 70551; 71045; 71250; 74176; 80048; 80053; 80061; 80076; 80202; 80305; 81003; 82040; 82140; 82375; 82550; 82607; 82746; 82805; 82962; 83036; 83605; 83735; 84100; 84134; 84145; 84439; 84443; 84484; 85025; 85027; 87070; 87077; 87186; 87426; 93005; 93306; 93970; 94003; 94640; 99291; C1725; C1769; J0456; J1650; J1815; J2060; J2185; J2250; J2270; J2405; J2470; J2543; J3010; J3370; J3475; J3480; J3490; J7030; J7040; J7050; J7060; J7608; Q9957

== ENCOUNTER → 2024-05-07 | Day surgery (SDC) | payer MEDICAID ==
[~2024-05-07] VITALS: Ht 170.2 cm; Wt 90.7 kg
[2024-05-07 11:50] VITALS: BP 111/63; PULSE 83; RESP 20; O2SAT 98
[2024-05-07 11:55] VITALS: BP 115/69; PULSE 87; RESP 26; O2SAT 98
[2024-05-07 12:00] VITALS: BP 112/62; PULSE 92; RESP 16; RESP 27; O2SAT 98
[2024-05-07 12:20] VITALS: BP 111/63; RESP 20
== END | disposition home or self-care (01) ==
LOC: RADANGIO 11:44
PROVIDERS: ATTEND Family Medicine Adult Medicine
DX: J93.9 Pneumothorax, unspecified (principal); I10 Essential (primary) hypertension; E11.9 Type 2 diabetes mellitus without complications; Z87.01 Personal history of pneumonia (recurrent); Z79.4 Long term (current) use of insulin; Z79.899 Other long term (current) drug therapy
CPT/HCPCS: 94002; 94070